=== PATIENT | male | born 1985 | race Caucasian/White ===

== ENCOUNTER 2020-10-29 11:42 | Outpatient (CLI) | payer BC, SELFPAY ==
[2020-10-29 12:34] LABS: Alanine Aminotransferase 40 U/L (16-63); Albumin Level 3.7 g/dL (3.4-5.0); Alkaline Phosphatase 87 U/L (46-116); Anion Gap 8 mmol/L (8-16); Aspartate Amino Transferase 33 U/L (15-37); Bilirubin,Total 0.7 mg/dL (0.00-1.00); Blood Urea Nitrogen 13 mg/dL (7-18); Calcium 8.8 mg/dL (8.5-10.1); Carbon Dioxide 30 mmol/L (21-32); Chloride 105 mmol/L (98-108); Cholesterol 210 mg/dL (0-200); Estimated Glomerular Filt Rate > 60; Glucose 97 mg/dL (70-99); HDL Direct 35 mg/dL (40-60); LDL Cholesterol Calculated 151 mg/dL (<130); Osmolality Calculated 296 mOsm/kg (285-295); Potassium 4.3 mmol/L (3.5-5.1); Sodium 143 mmol/L (136-145); Total Protein 6.8 g/dL (6.4-8.2); Triglycerides 118 mg/dL (0-150)
== END 2020-10-29 11:43 | disposition home or self-care (01) ==
LOC: CHSLAB 11:43
PROVIDERS: PCP Internal Medicine; Visit Provider Internal Medicine
DX: E78.5 Hyperlipidemia, unspecified (principal); Z51.81 Encounter for therapeutic drug level monitoring
CPT/HCPCS: 36415; 80053; 80061

== ENCOUNTER 2023-09-03 02:08 | Day surgery (SDC) | payer OTHER, SELFPAY ==
[2023-08-20 14:21] VITALS: BMI 47.0
[2023-09-03 11:49] VITALS: BP 135/80; PULSE 92; RESP 20; TEMP 36.2; O2SAT 100; BMI 44.1
--- NOTE | 2023-09-03 11:51 | SUR.PREOP ---
Patient reports eating a breakfast sandwich yesterday AM, 09/02/23. However stools are clear/yellow today. Dr. Prachi hamm.
[2023-09-03] MEDS: LACTATED RINGERS 1,000 ML 150 ML IV CONT (12:00)
--- NOTE | 2023-09-03 12:33 | WPDANESEPPF ---
Anes - Initial Pre Proc Eval Procedure: Operation Date: 09/03/23 13:00 Proposed Procedures p Colonoscopy - Gaudencio Velarde DO Date/Time: 09/03/23 12:33 Surgeon: Gaudencio Velarde DO Pre Op Diagnosis: Blood in stool Patient Data Age: 37 Gender: M Height: 1.91 m Weight: 160 kg Last Vital Signs Temp 36.2 C L 09/03/23 11:49 Pulse 92 09/03/23 11:49 Resp 20 09/03/23 11:49 BP 135/80 09/03/23 11:49 Pulse Ox 100 09/03/23 11:49 O2 Del Method Room Air 09/03/23 11:49 Allergies Allergy/AdvReac Type Severity Reaction Status Date / Time No Known Allergies Allergy Verified 09/03/23 11:48 Home Medications Medication Instructions Recorded Confirmed Type phentermine 37.5 mg capsule 37.5 mg PO DAILY 08/20/23 09/03/23 History rosuvastatin 40 mg tablet 40 mg PO DAILY 08/20/23 09/03/23 History topiramate 50 mg tablet 50 mg PO DAILY 08/20/23 09/03/23 History Patient hx anesthesia problems: none Family hx anesthesia problems: none Results Review: All pre-operative results and documents have been reviewed as part of the pre-operative evaluation. [facility] Past Medical History Medical History (Updated 09/03/23 @ 12:33 by Fabrizio Gipson MD) Morbid obesity Social History Social History Smoking status: Never smoker Substance use type: does not use Living arrangements: with family Spiritual care concerns: No Anes - Eval Final PreProcedure Day of Procedure 09/03/23 12:33 Patient weight: morbidly obese Heart: regular rate and rhythm Lungs: clear to auscultation Airway: Mallampati scale class II Neurological: alert and oriented Last oral intake: >/= 8 hours ASA classification: III Emergent: no Anesthetic plan: proceed Anesthesia type and monitoring: general GIVS and standard monitoring Results Review: All pre-operative results and documents have been reviewed as part of the pre-operative evaluation. Informed Consent: The patient's anesthetic plan and its attendant risks and benefits were discussed with the patient/family/POA. Questions were solicited and answers provided to the satisfaction of the patient/family/POA.
--- NOTE | 2023-09-03 12:48 | PM.IMHP ---
H&P: HPI History of Present Illness Date/Time: 09/03/23 12:48 Chief Complaint: Rectal bleeding Narrative: this is a 37-year-old man who presents for colonoscopy. He recently had an episode of rectal bleeding. He describes as lot of blood and he was not straining to have a bowel movement. He denies any family history of colon cancer. He denies any other symptoms. Review of Systems Review of Systems: All systems reviewed & are unremarkable except as noted in HPI and below Constitutional: Constitutional: Denies chills, Denies fever(s), Denies headache(s) and Denies weight loss Eyes: Eyes: Denies change in vision ENT: Denies dizziness, Denies headache(s), Denies neck mass and Denies throat swelling Cardiovascular: Cardiovascular: Denies chest pain, Denies lightheadedness and Denies dyspnea Respiratory: Respiratory: Denies cough, Denies dyspnea and Denies wheezing Gastrointestinal: Gastrointestinal: Denies abdominal pain, Reports hematochezia, Denies change in bowel habits, Denies nausea and Denies vomiting Genitourinary: Genitourinary: Denies hematuria and Denies dysuria Musculoskeletal: Musculoskeletal: Reports as per HPI Integumentary/Breasts: Skin/Breast: Reports as per HPI Neurologic: Denies dizziness and Denies headache(s) Allergic/Immunologic: Allergic/Immunologic: Denies throat swelling and Denies wheezing PMF Past Medical History Medical History Morbid obesity Social History Social History Smoking status: Never smoker Substance use type: does not use Living arrangements: with family Spiritual care concerns: No Meds Home Medications and Allergies Home Medications Medication Instructions Recorded Confirmed Type phentermine 37.5 mg capsule 37.5 mg PO DAILY 08/20/23 09/03/23 History rosuvastatin 40 mg tablet 40 mg PO DAILY 08/20/23 09/03/23 History topiramate 50 mg tablet 50 mg PO DAILY 08/20/23 09/03/23 History Allergies Allergy/AdvReac Type Severity Reaction Status Date / Time No Known Allergies Allergy Verified 09/03/23 11:48 Vital Signs Vital Signs - 24 hr 09/03/23 11:49 Temperature 36.2 C L Pulse Rate 92 Respiratory Rate 20 Blood Pressure 135/80 Pulse Oximetry 100 Oxygen Delivery Room Air Exam Const: General: no acute distress and alert Orientation/consciousness: patient oriented x3 HENMT: Head: normocephalic and atraumatic Ears: hearing grossly normal bilaterally Face/Nose/Sinus: Normal nares present Mouth: Yes Normal oral and palatal mucosa present Eyes: Periorbital: periorbital findings normal Sclera: sclerae normal EOM: EOMs intact bilaterally Neck: Neck: normal visual inspection, no lymphadenopathy and trachea midline Chest: Chest palpation & inspection: normal inspection of the chest Resp: Effort & Inspection: normal respiratory effort Auscultation: clear to auscultation bilaterally Cardio: Jugular venous distension: no JVD Rate: regular rate Rhythm: regular rhythm Heart sounds: S1 normal heart sound present and S2 normal heart sound present Peripheral pulses: Peripheral pulses 2+ throughout GI: Inspection: normal to inspection GI Palp: Yes Soft to palpation, No Tenderness to palpation present (GI), No Guarding due to palpation present (GI) and No Rebound tenderness present Percussion: Yes normal to percussion Auscultation: normal bowel sounds : General: Yes no CVA tenderness Back/Spine/Pelvis: Back: no CVA tenderness Neuro: General: patient oriented x3, no focal motor deficits and CN's II-XI intact bilaterally Cognition (Neuro): normal cognition Speech: normal speech Motor exam (neuro): 5/5 motor strength present throughout Extrem: General: capillary refill normal and no clubbing, cyanosis or edema Assessment and Plan Assessment and plan (1) Rectal bleeding: Code(s): K62.5 - Hemorrhage of anus and
[2023-09-03 13:46] VITALS: BP 145/56; PULSE 88; RESP 19; O2SAT 100
[2023-09-03 13:56] VITALS: BP 134/68; PULSE 85; RESP 24; O2SAT 100
[2023-09-03 14:06] VITALS: BP 125/70; PULSE 79; RESP 27; O2SAT 99
== END 2023-09-03 14:22 | disposition home or self-care (01) ==
PROVIDERS: PCP Internal Medicine; Visit Provider Surgery
PROC: 0DJD8ZZ Inspection of Lower Intestinal Tract, Via Natural or Artificial Opening Endoscopic (ICD-10-PCS; CPT 45378; principal; 2023-09-03 13:00)
DX: K64.8 Other hemorrhoids (principal); E66.01 Morbid (severe) obesity due to excess calories; Z68.41 Body mass index [BMI] 40.0-44.9, adult
CPT/HCPCS: 45378; J7120

== ENCOUNTER 2023-10-17 15:01 | Outpatient (CLI) | payer OTHER, SELFPAY ==
--- NOTE | 2023-10-17 15:07 | ECHO_ITS ---
Patient Info Name: Dwayne Alvarenga Age: 38 years : 1985 Gender: Male Ht: 75 in Wt: 370 lbs BSA: 3.06 m2 HR: 70 bpm BP: 139 / 78 mmHg Heart Rhythm: Sinus Rhythm Technical Quality: Good Exam Date: 10/17/2023 2:56 PM Exam Location: [facility] Patient Status: Outpatient Admit Date: 10/17/2023 Staff Ordering Physician: Kyleigh Napoles MD [employer]: Ness Ballesteros RDCS Attending Provider: Kyleigh Napoles MD Referring Physician: Dony FAY; Exam Type: CA echo doppler color flow Study Info Indications - dyspnea, chest pain, htn Complete two-dimensional, color flow and Doppler transthoracic echocardiogram is performed. Summary 1. Complete two-dimensional, color flow and Doppler transthoracic echocardiogram is performed. 2. Left ventricular chamber dimension is moderately enlarged. 3. Left ventricular systolic function is normal, estimated at 60-65%. 4. The left ventricular diastolic function is normal. 5. E/e' 8 is minimally elevated. 6. No pulmonary hypertension, estimated pulmonary arterial systolic pressure is 19 mmHg. Left Ventricle E/e' 8 is minimally elevated. Left ventricular chamber dimension is moderately enlarged. Left ventricular systolic function is normal, estimated at 60-65%. The left ventricular diastolic function is normal. Right Ventricle Right ventricular systolic function is normal and with normal TAPSE 3.5 cm. Right ventricular chamber dimension is normal. Left Atria Left atrial chamber dimension is normal. Right Atria Right atrial chamber dimension is normal. Aortic Valve The aortic valve is trileaflet. There is no aortic valve stenosis. There is no aortic valve regurgitation. Pulmonic Valve There is no pulmonic regurgitation. Mitral Valve There is no mitral valve stenosis. There is no mitral valve regurgitation. Tricuspid Valve There is no tricuspid valve regurgitation. No pulmonary hypertension, estimated pulmonary arterial systolic pressure is 19 mmHg. Pericardium/Pleural There is no pericardial effusion. Inferior Vena Cava Normal inferior vena cava with >50% collapse upon inspiration consistent with normal right atrial pressure, 5 mmHg. Aorta The aortic root size at the sinus of Valsalva is normal. Left Ventricular Outflow Tract Name Value Normal LVOT 2D LVOT Diameter 2.1 cm LVOT Doppler LVOT Peak Velocity 95 cm/s LVOT Peak Gradient 4 mmHg LVOT Mean Gradient 2 mmHg LVOT VTI 22 cm LVOT VTI/AV VTI Ratio 0.8 LVOT Stroke Volume 73 ml Pulmonic Valve Name Value Normal PV Doppler PV Peak Velocity 99 cm/s PV Peak Gradient 4 mmHg Mitral Valve Name Value Normal
== END 2023-10-17 15:02 | disposition home or self-care (01) ==
LOC: CHSIMG 15:03
PROVIDERS: PCP Internal Medicine; Visit Provider Internal Medicine
DX: R06.00 Dyspnea, unspecified (principal); R07.9 Chest pain, unspecified; I10 Essential (primary) hypertension
CPT/HCPCS: 93306

== ENCOUNTER 2023-10-21 07:43 | Outpatient (CLI) | payer OTHER, SELFPAY ==
--- NOTE | 2023-10-21 07:55 | EST_ITS ---
Patient Info Name: Dwayne Alvarenga Age: 38 years : 1985 Gender: Male Ht: 74 in Wt: 358 lbs BSA: 2.99 m2 HR: 73 bpm BP: 118 / 66 mmHg Heart Rhythm: Sinus Arrhythmia Technical Quality: Good Exam Date: 10/21/2023 8:58 AM Exam Location: [facility] Patient Status: Outpatient Admit Date: 10/21/2023 Staff Ordering Physician: Kyleigh Napoles MD Attending Provider: Alistair Renteria NMAA Exam Type: CA stress hazel w NM Study Info A regadenoson stress test was performed. History/Risk Factors Dyslipidemia: Yes Obesity: Yes History/Risk Factors Strong fam hx of CHF including his brother 2 years older than him. Summary 1. 1. Negative lexiscan stress test for ischemic ST changes by ECG criteria. 2. 2. Stable hemodynamics throughout the test. 3. 3. Nuclear scan to follow and will be reported separately. Please correlate with it. 4. 4. Patient informed of the above results. Protocol: LEXISCAN Stress ECG Details Stage: REST Duration (min): 2 min : 8 sec HR (bpm): 73 SBP (mmHg): 118 DBP (mmHg): 66 Stage: REST Duration (min): 10 min : 50 sec HR (bpm): 75 SBP (mmHg): 118 DBP (mmHg): 66 Stage: STAGE 1 Duration (min): 0 min : 24 sec HR (bpm): 76 SBP (mmHg): 118 DBP (mmHg): 66 Stage: RECOVERY Duration (min): 0 min : 35 sec HR (bpm): 105 SBP (mmHg): 118 DBP (mmHg): 66 Stage: RECOVERY Duration (min): 1 min : 35 sec HR (bpm): 95 SBP (mmHg): 118 DBP (mmHg): 66 Stage: RECOVERY Duration (min): 2 min : 35 sec HR (bpm): 95 SBP (mmHg): 118 DBP (mmHg): 63 Stage: RECOVERY Duration (min): 3 min : 35 sec HR (bpm): 88 SBP (mmHg): 121 DBP (mmHg): 64 Stage: RECOVERY Duration (min): 4 min : 35 sec HR (bpm): 84 SBP (mmHg): 121 DBP (mmHg): 64 Stage: RECOVERY Duration (min): 5 min : 35 sec HR (bpm): 85 SBP (mmHg): 102 DBP (mmHg): 80 Stage: RECOVERY Duration (min): 6 min : 29 sec HR (bpm): 90 SBP (mmHg): 128 DBP (mmHg): 77 Rest HR: 75 bpm Peak HR: 111 bpm Rest Sys BP: 118 mmHg Peak Sys BP: 128 mmHg Max Pred HR: 180 bpm % Max Pred HR: 62 % Target HR: 153 bpm Max RPP: 14,208 bpm*mmHg BP Response: Normal blood pressure response Termination Reason: Completed Protocol Cardiac Symptoms: None Total Time: 0 min : 24 sec Rest Pike BP: 66 mmHg Peak Pike BP: 77 mmHg Total Dose: 0.4 mg Resting ECG Sinus rhythm with sinus arrhythmia, IRBBB. Stress ECG No abnormal ST/T wave changes. Arrhythmias No arrhythmias were observed during the examination. Report Signatures
--- NOTE | 2023-10-21 13:41 | WPDCARIOSTRE ---
Nuclear Stress Test INDICATIONS Indications: Dyspnea PROCEDURE Procedure Performed: Myocardial Perf Spect-Multi Procedure: Patient underwent a lexiscan stress test and immediately was injected with 36.5 mCi of cardiolyte. Multiple tomographic images were obtained. These were of good quality. There is evidence of large size, moderate severity inferior defect, and a moderate size, moderate severity inferolateral perfusion defect with stress imaging. A separate resting images were obtained after patient was injected with 11.1 mCi of cardiolyte. Multiple tomographic images were obtained. These were of good quality. There is evidence of large size, moderate severity inferior defect with rest imaging. CONCLUSION Conclusion: 1. Abnormal myocardial perfusion imaging demonstrating a moderate size inferolateral perfusion defect during stress imaging consistent with reversible ischemia. In addition, there is a fixed large size inferior defect suggestive of diaphragmatic attenuation artifact. 2. Left ventriculogram demonstrates mild systolic dysfunction at 49% with no wall motion abnormalities. 3. TID score 1.09 is not elevated.
== END 2023-10-21 07:44 | disposition home or self-care (01) ==
LOC: CHSCARD 07:45
PROVIDERS: PCP Internal Medicine; Visit Provider Internal Medicine
DX: R06.00 Dyspnea, unspecified (principal); I10 Essential (primary) hypertension; R94.39 Abnormal result of other cardiovascular function study
CPT/HCPCS: 78452; 93017; A9502; J2785

== ENCOUNTER 2024-09-04 10:21 | Outpatient (CLI) | payer OTHER, SELFPAY ==
--- NOTE | ~2024-09-04 | US_ITS ---
US retroperitoneal comp 09/04/2024 10:45 Procedure: Realtime transabdominal ultrasound of the kidneys and bladder. Indication: Hematuria Comparison: No prior studies for comparison. Findings: Renal echotexture is normal bilaterally without hydronephrosis, contour deforming mass or r enal calculus. The right kidney measures 11.6 cm and left kidney measures 13.3 cm. Bladder within no rmal limits. Impression: 1: Unremarkable renal ultrasound. No stones, masses or hydronephrosis. Reviewed, dictated and finalized at location [] Impression: 1: Unremarkable renal ultrasound. No stones, masses or hydronephrosis.
== END 2024-09-04 10:22 | disposition home or self-care (01) ==
LOC: MICIMG 10:22
PROVIDERS: PCP Internal Medicine; Visit Provider Internal Medicine
DX: R31.9 Hematuria, unspecified (principal)
CPT/HCPCS: 76770